=== PATIENT | male | born 1970 | race African-American/Black ===

== ENCOUNTER 2018-03-07 16:39 | Inpatient (IN) | payer SELFPAY ==
[~2018-03-07] VITALS: Ht 175.3 cm; Wt 79.8 kg
[2018-03-07 17:34] LABS: CHLORIDE 103 mEq/L (98-107)
[2018-03-07 17:39] LABS: BASOPHILS % 0.6 % (0.0-2.0); HEMATOCRIT. 41.6 % (42.0-52.0); HEMOGLOBIN. 14.4 g/dL (14.0-18.0); LYMPHOCYTES % 43.8 % (20.0-50.0); MEAN CORPUSCULAR HEMOGLOBIN 33.4 pg (28.0-32.0); MEAN CORPUSCULAR VOLUME 96.5 fL (80.0-94.0); MONOCYTES % 11.9 % (2.0-8.0); NEUTROPHILS % 42.7 % (40.0-76.0); PLATELET 259 x1000/uL (130-400); RED BLOOD CELL COUNT 4.31 mill/uL (4.7-6.1); RED CELL DISTRIBUTION WIDTH 12.8 % (11.6-14.6)
[2018-03-07 17:43] LABS: D-DIMER 0.57 mg/L FEU (<0.50); INR 1.1; PARTIAL THROMBOPLASTIN TIME 23.2 sec (23.4-31.0); PROTHROMBIN TIME 10.7 sec (9.1-11.1)
[2018-03-07] MEDS ORDERED: IOHEXOL-350 100 ML BOTTLE ONE (20:35)
[2018-03-07] MEDS ORDERED: ONDANSETRON HCL 4MG/2ML INJ IV PRN (21:30)
[2018-03-07] MEDS ORDERED: MAGNESIUM/ALUMINUM HYDROXIDE/SIMETHICONE 30ML UDC PO PRN (21:30)
[2018-03-07] MEDS ORDERED: LORAZEPAM 0.5MG TABLET PO PRN (21:30)
[2018-03-07] MEDS ORDERED: ASPIRIN 325MG EC TABLET PO ONE (21:30)
[2018-03-07] MEDS ORDERED: NA PHOS,M-B/NA PHOS,DI-BA ENEMA 118ML PR PRN (21:30)
[2018-03-07] MEDS ORDERED: IPRATROPIUM/ALBUTEROL 0.5-3(2.5)MG/3ML NEB INH PRN (21:30)
[2018-03-07] MEDS ORDERED: DOCUSATE SODIUM 100MG CAPSULE PO PRN (21:30)
[2018-03-07] MEDS ORDERED: NITROGLYCERIN 0.4MG TABLET SL SL PRN (21:30)
[2018-03-07] MEDS ORDERED: ACETAMINOPHEN 325MG TABLET PO PRN (21:30)
[2018-03-07] MEDS ORDERED: ZOLPIDEM TARTRATE 5MG TABLET PO PRN (21:30)
[2018-03-07] MEDS ORDERED: CLONIDINE 0.1MG TABLET PO PRN (21:30)
[2018-03-07 22:20] VITALS: BP 112/72
[2018-03-07 23:00] VITALS: BP 112/72
[2018-03-07] MEDS: GUAIFENESIN 200MG/10ML SUGAR FREE UDC PO PRN (23:16)
[2018-03-07] MEDS: KETOROLAC 15MG/ML VIAL IV PRN (23:17)
[2018-03-08 01:56] LABS: CREATINE KINASE 390 IU/L (39-308)
[2018-03-08 01:58] LABS: CREATINE KINASE MB FRACTION 1.4 ng/mL (0.5-3.6)
[2018-03-08 04:00] VITALS: BP 136/87
[2018-03-08] MEDS: GUAIFENESIN 200MG/10ML SUGAR FREE UDC PO PRN (06:52)
[2018-03-08] MEDS: SUCRALFATE 1 G/10 ML UDC PO SCH ×2 (06:52→09:27)
[2018-03-08 06:56] LABS: CREATINE KINASE 334 IU/L (39-308)
[2018-03-08] MEDS: KETOROLAC 15MG/ML VIAL IV PRN (06:56)
[2018-03-08 06:58] LABS: CREATINE KINASE MB FRACTION 1.1 ng/mL (0.5-3.6)
[2018-03-08 08:00] VITALS: BP 138/85
[2018-03-08] MEDS ORDERED: ASPIRIN 325MG EC TABLET PO SCH (09:00)
[2018-03-08] MEDS ORDERED: FAMOTIDINE 20MG TABLET PO SCH (09:00)
[2018-03-08] MEDS ORDERED: ENOXAPARIN 40MG/0.4ML SYR SUBCUT SCH (09:00)
[2018-03-08] MEDS ORDERED: ASPI-1159 PO (10:59)
[2018-03-08] MEDS ORDERED: ATOR10TA PO (10:59)
[2018-03-08 11:08] VITALS: BP 138/85
== END 2018-03-08 13:17 | disposition home or self-care (01) | DRG 203 ==
LOC: ER 17:09 → 8WST 21:19 → EDBEDREQ 21:21 → ENRESERV 21:44
PROVIDERS: ADMIT Internal Medicine; ATTEND Internal Medicine
DX: R07.89 Other chest pain (principal); M54.9 Dorsalgia, unspecified; R05 Cough; R06.02 Shortness of breath
CPT/HCPCS: 36415; 71045; 71275; 74174; 80053; 80061; 82550; 82553; 83036; 83880; 84484; 85025; 85379; 85610; 85730; 93005; 93970; 99285; J1650; J1885; Q9967

== ENCOUNTER 2018-09-24 21:37 | Emergency (ER) | payer MEDICAID ==
[~2018-09-24] VITALS: Ht 180.3 cm; Wt 110.0 kg
[~2018-09-24 21:37] MED LIST: ASPI-1159 PO; ATOR10TA PO
[2018-09-24] MEDS ORDERED: ONDANSETRON HCL 4MG/2ML INJ IV STA (22:14)
[2018-09-24] MEDS ORDERED: SODIUM CHLORIDE 0.9% 1,000 ML IV ONE (22:14)
[2018-09-24] MEDS ORDERED: MORPHINE SULFATE 4 MG/ML CPJ (NOT FOR IM USE) IV STA (22:14)
[2018-09-24 22:34] LABS: BASOPHILS % 0.5 % (0.0-2.0); EOSINOPHILS % 0.8 % (0.0-5.0); HEMATOCRIT. 39.3 % (42.0-52.0); HEMOGLOBIN. 14.1 g/dL (14.0-18.0); LYMPHOCYTES % 31.2 % (20.0-50.0); MEAN CORPUSCULAR HEMOGLOBIN 34.1 pg (28.0-32.0); MEAN CORPUSCULAR VOLUME 94.9 fL (80.0-94.0); MEAN PLATELET VOLUME 6.2 fl (7.4-10.4); MONOCYTES % 7.3 % (2.0-8.0); NEUTROPHILS % 60.2 % (40.0-76.0); PLATELET 361 x1000/uL (130-400); RED BLOOD CELL COUNT 4.14 mill/uL (4.7-6.1); RED CELL DISTRIBUTION WIDTH 12.7 % (11.6-14.6)
[2018-09-24 22:39] LABS: CHLORIDE 106 mEq/L (98-107); PROTHROMBIN TIME 10.7 sec (9.6-11.0)
[2018-09-24] MEDS ORDERED: HYDROCODONE/ACETAMINOPHEN 5/325MG TABLET PO ONE (23:45)
[2018-09-25 00:37] VITALS: BP 139/82
== END 2018-09-25 00:37 | disposition home or self-care (01) ==
LOC: ER 21:37
DX: R51 Headache (principal); I62.00 Nontraumatic subdural hemorrhage, unspecified; I10 Essential (primary) hypertension; Z98.890 Other specified postprocedural states; Z79.82 Long term (current) use of aspirin; Z79.899 Other long term (current) drug therapy
CPT/HCPCS: 36415; 70450; 80053; 85025; 85610; 96361; 96374; 96375; 99284; J2270; J2405; J7030; Z7610